=== PATIENT | male | born 1965 | race Caucasian/White ===

== ENCOUNTER 2023-09-12 07:28 | Emergency (ER) | payer OTHER, SELFPAY ==
[2023-09-12 07:37] VITALS: PULSE 74; O2SAT 100
[2023-09-12 07:38] VITALS: BP 191/105; PULSE 78; RESP 16; TEMP 36.5; O2SAT 98; BMI 24.8
[2023-09-12 07:46] VITALS: BP 188/98; PULSE 67; O2SAT 100
--- NOTE | 2023-09-12 07:55 | ED.ABDPAIN ---
HPI - Abdominal Pain General Chief Complaint: Abdominal Pain Stated Complaint: abd pain, lump Time Seen by Provider: 09/12/23 07:37 Source: patient Mode of arrival: Ambulatory History of Present Illness HPI narrative: Patient 78-year-old healthy male presents today with right inguinal groin bulge. He reports that a couple months ago he noticed it it made seems to come and go however this morning he noticed that it was much harder. He did have a bowel movement yesterday. No significant nausea vomiting or fever. He denies lifting anything heavy. In fact he walks 3 miles yesterday without any sort of issue. Denies any sort of testicular pain or swelling. Related Data Allergies Allergy/AdvReac Type Severity Reaction Status Date / Time No Known Drug Allergies Allergy Verified 09/12/23 07:42 Patient History Social History Smoking Status: Never smoker Smoking Status: Never smoker alcohol intake frequency: a few times a week Substance Use Type: marijuana Exam Initial Vital Signs Initial Vital Signs: Vital Signs Pulse Rate 74 09/12/23 07:37 Pulse Oximetry 100 09/12/23 07:37 GENERAL: Well-appearing, well-nourished and in no acute distress. CARDIOVASCULAR: peripheral pulses in tact, cap refill <2 sec RESPIRATORY: No respiratory distress, speaks in full sentences without difficulty ABDOMEN: Soft, nontender, no guarding or rebound right inguinal area bulge which is easily reduced with mild pressure EXTREMITIES: Normal range of motion, no clubbing or edema. Neurovascularly intact NEUROLOGICAL: Cranial nerves II through XII grossly intact. Normal gait and speech. SKIN: Warm, dry, no petechiae, no rashes or lesions. Course Vital Signs Vital signs: Vital Signs - 8 hr 09/12/23 07:37 09/12/23 07:38 09/12/23 07:46 Temperature 97.7 F Pulse Rate 74 78 Respiratory Rate 16 Blood Pressure 191/105 H 188/98 H Pulse Oximetry 100 98 Oxygen Delivery Method Room Air 09/12/23 07:46 Temperature Pulse Rate 67 Respiratory Rate Blood Pressure Pulse Oximetry 100 Oxygen Delivery Method MDM - Abdominal Pain MDM Narrative Medical decision making narrative: Patient is 58-year-old male presents today with a right inguinal groin bulge which is easily reducible. This is consistent with inguinal hernia. Denies any sort of testicular pain or swelling. We discussed need to follow-up with surgery also history of return precautions and how to help this at home along with preventive from happening. At this time he is hemodynamically stable without any other symptoms easily reduced I see no need for blood work or imaging. Discharge Plan Departure Patient Disposition: Home Clinical Impression: Hernia, inguinal, right Instructions: Groin Hernia -- Adult Activity Restrictions/Additional Instructions: *You have been diagnosed with right inguinal hernia *What to do: I do recommend that you follow-up with surgery for surgical evaluation. I think that this will need to be fixed. Recommend lying down to try and push it in may try an ice pack if unable to push in and having increasing pain you need to return to the ED *Continue to take medications as directed Tylenol Motrin as needed for pain *Follow up with your primary care provider in 2-3 days or call [phone] Call [facility] to follow-up, you may need a referral from your PCP *Return to ER if you should haveinability to reduce, nausea, vomiting, [or] any new, worsening or concerning symptoms Referrals: [facility] [Provider Group] Stand Alone Forms: Patient Portal/API
[2023-09-12 08:07] VITALS: BP 185/93; PULSE 74; RESP 16; O2SAT 98
== END 2023-09-12 08:08 | disposition home or self-care (01) ==
PROVIDERS: Emergency Provider Emergency Medicine
DX: K40.90 Unilateral inguinal hernia, without obstruction or gangrene, not specified as recurrent (principal)
CPT/HCPCS: 99281; 99282